=== PATIENT | female | born 1965 | race Caucasian/White ===

== ENCOUNTER 2022-05-22 02:31 | Observation (INO) | payer OTHER ==
[2022-05-22 03:16] VITALS: BMI 28.3
[2022-05-22] MEDS ORDERED: ACETAMINOPHEN 1000 MG/100 ML BAG IVPB ONE (03:46)
[2022-05-22] MEDS ORDERED: SODIUM CHLORIDE 0.9% 500 ML INFUS.BAG IV ONE (03:46)
[2022-05-22] MEDS ORDERED: ACETAMINOPHEN INJECTION 100 ML IVPB ONE (03:57)
[2022-05-22 04:45] LABS: BASO % 0.3 % (0-2.0); EOS % 0.6 % (0-4.5); HEMATOCRIT 39.7 % (32.4-45.2); HEMOGLOBIN 13.9 GM/dL (10.7-15.3); INR 1.01 (0.83-1.09); LYMPH % 19.3 % (8-40); MCHC 35.1 g/dl (32.0-36.0); MEAN CELL VOLUME 85.6 fl (80-96); MEAN PLT VOLUME 6.3 fl (7.5-11.1); MONO % 5.2 % (3.8-10.2); NEUT % 74.6 % (42.8-82.8); PLATELET COUNT 316 10^3/uL (134-434); PROTHROMBIN TIME (PATIENT) 11.6 SEC (9.7-13.0); RBC 4.64 M/mm3 (3.60-5.2); RDW 12.9 % (11.6-15.6); WHITE BLOOD COUNT 7.7 K/mm3 (4.0-10.0)
[2022-05-22 04:48] LABS: ACTIVATED PTT 30.5 SECONDS (25.2-36.5)
[2022-05-22 05:05] LABS: ALBUMIN 3.6 g/dl (3.4-5.0); BLOOD UREA NITROGEN 8.8 mg/dL (7-18); CALCIUM 8.8 mg/dL (8.5-10.1)
[2022-05-22 05:08] LABS: CREATININE 0.6 mg/dL (0.55-1.3)
[2022-05-22 05:10] LABS: BILIRUBIN,TOTAL 0.7 mg/dL (0.2-1); TOT PROT 7.5 g/dl (6.4-8.2)
[2022-05-22] MEDS ORDERED: BEBTELOVIMAB (EUA) 175 MG/2 ML VIAL IVPUSH ONE ×2 (05:25→07:00)
[2022-05-22] MEDS ORDERED: ONDANSETRON 4 MG/2 ML VIAL IVPUSH ONE (08:09)
[2022-05-22] MEDS ORDERED: ASPIRIN 325 MG ENTERIC COATED TABLET (FP) PO ONE (08:09)
[2022-05-22] MEDS ORDERED: NITROGLYCERIN 2% OINTMENT - 1GM PACKET TD ONE ×2 (08:09→08:25)
[2022-05-22] MEDS ORDERED: ONDANSETRON 4 MG/2 ML VIAL ONE (08:25)
[2022-05-22] MEDS ORDERED: ASPIRIN 325 MG ENTERIC COATED TABLET (FP) ONE (08:25)
[2022-05-22] MEDS ORDERED: POLYETHYLENE GLYCOL (HEALTHYLAX) 3350 17 GM PACKET PO PRN (11:11)
[2022-05-22] MEDS: ACETAMINOPHEN 325 MG TABLET (FP) PO PRN ×2 (15:57→21:41)
[2022-05-22] MEDS: INSULIN SLIDING SCALE (NOVOLOG) 1 VIAL SQ SCH ×2 (16:02→21:39)
[2022-05-22] MEDS ORDERED: ATORVASTATIN CA 20 MG TABLET (FP) PO SCH (22:00)
[2022-05-23] MEDS: INSULIN SLIDING SCALE (NOVOLOG) 1 VIAL SQ SCH ×3 (06:11→17:24)
[2022-05-23 07:33] LABS: BASO % 0.4 % (0-2.0); EOS % 0.4 % (0-4.5); HEMATOCRIT 42.8 % (32.4-45.2); HEMOGLOBIN 14.8 GM/dL (10.7-15.3); LYMPH % 29.2 % (8-40); MCH 30.2 pg (25.7-33.7); MCHC 34.6 g/dl (32.0-36.0); MEAN CELL VOLUME 87.2 fl (80-96); MEAN PLT VOLUME 6.5 fl (7.5-11.1); MONO % 6.8 % (3.8-10.2); NEUT % 63.2 % (42.8-82.8); PLATELET COUNT 363 10^3/uL (134-434); RBC 4.91 M/mm3 (3.60-5.2); RDW 13.3 % (11.6-15.6); WHITE BLOOD COUNT 8.7 K/mm3 (4.0-10.0)
[2022-05-23 08:00] LABS: CALCIUM 9.2 mg/dL (8.5-10.1)
[2022-05-23 08:01] LABS: ALBUMIN 3.7 g/dl (3.4-5.0); BLOOD UREA NITROGEN 9.3 mg/dL (7-18)
[2022-05-23 08:04] LABS: CREATININE 0.6 mg/dL (0.55-1.3); TOT PROT 7.8 g/dl (6.4-8.2)
[2022-05-23] MEDS ORDERED: amLODIPine BESYLATE 5 MG TABLET (FP) PO SCH (10:00)
[2022-05-23] MEDS ORDERED: ENOXAPARIN NA (PORCINE) 40 MG/0.4 ML DISP.SYRIN SQ SCH (10:00)
[2022-05-23] MEDS ORDERED: LOSARTAN POTASSIUM 50 MG TABLET PO SCH (10:00)
[2022-05-23] MEDS: ACETAMINOPHEN 325 MG TABLET (FP) PO PRN (10:18)
[2022-05-23 11:01] VITALS: RESP 18
[2022-05-23 14:12] VITALS: BP 152/73; PULSE 104; TEMP 98.5
== END 2022-05-23 19:07 | disposition home or self-care (01) ==
LOC: JER 02:31 → JERBED 11:03 → J4W 14:25
PROVIDERS: ADMIT Internal Medicine; ATTEND Internal Medicine
PROC: 3E023GC Introduction of Other Therapeutic Substance into Muscle, Percutaneous Approach (ICD-10-PCS; principal; 2022-05-22)
PROC: 3E033NZ Introduction of Analgesics, Hypnotics, Sedatives into Peripheral Vein, Percutaneous Approach (ICD-10-PCS; 2022-05-22)
PROC: 3E0337Z Introduction of Electrolytic and Water Balance Substance into Peripheral Vein, Percutaneous Approach (ICD-10-PCS; 2022-05-22)
DX: Z86.16 Personal history of COVID-19 (principal); E78.5 Hyperlipidemia, unspecified; I10 Essential (primary) hypertension
CPT/HCPCS: 36415; 71045-TC-FY; 80053; 82550; 82553; 82962; 84484; 85025; 85610; 85730; 93005; 93010; 96361; 96372; 96374; 96375; 99285-25; C9803-CS; G0378; M0222; Q0222; U0003; U0005